=== PATIENT | male | born 1985 | race Caucasian/White ===

== ENCOUNTER 2017-11-05 23:20 | Emergency (ER) | payer OTHER ==
[2017-11-06] MEDS ORDERED: KETOROLAC 60 MG/2 ML VIAL (J1885) IM (02:00)
[2017-11-06] MEDS: IBUPROFEN 600 MG TAB PO (02:14)
== END 2017-11-06 03:04 | disposition home or self-care (01) ==
LOC: M ED 23:20
DX: S39.012A Strain of muscle, fascia and tendon of lower back, initial encounter (principal); S30.0XXA Contusion of lower back and pelvis, initial encounter; W19.XXXA Unspecified fall, initial encounter; Y92.9 Unspecified place or not applicable; Y93.61 Activity, american tackle football; Z88.0 Allergy status to penicillin
CPT/HCPCS: 72110

== ENCOUNTER → 2018-02-06 | Outpatient (REF) | payer OTHER | LOC: M LAB REF 16:59 | DX: J02.9 Acute pharyngitis, unspecified (principal) | CPT/HCPCS: 87077 ==

== ENCOUNTER → 2018-03-10 | Outpatient (REF) | payer OTHER ==
[2018-03-10 10:04] LABS: BASO % 0.3 % (0.0-1.0); EOS # 0.1 10^3/uL (0.0-0.50); EOS % 2.1 % (0.0-3.0); HEMATOCRIT 40.3 % (42.0-52.0); HEMOGLOBIN 14.4 g/dl (13.5-17.5); IMMATURE GRANULOCYTE % 0.9 % (0-3.0); LYMPH # 0.7 10^3/uL (1.5-4.5); LYMPH % 20.2 % (24.0-44.0); MEAN CORPUSCULAR HGB CONC 35.7 g/dl (32.0-36.5); MEAN CORPUSCULAR VOLUME 95.3 fl (80.0-96.0); MONO # 0.4 10^3/uL (0.0-0.8); NEUTROPHILS # 2.1 10^3/uL (1.8-7.7); NEUTROPHILS % 64.5 % (36.0-66.0); PLATELET COUNT, AUTOMATED 157 10^3/uL (150-450); RED BLOOD COUNT 4.23 10^6/uL (4.30-6.10); RED CELL DISTRIBUTION WIDTH 13.1 % (11.5-14.5); WHITE BLOOD COUNT 3.3 10^3/uL (4.0-10.0)
[2018-03-10 10:13] LABS: ESTIMATED AVERAGE GLUCOSE 71 MG/DL (60-110); HEMOGLOBIN A1c 4.1 %
[2018-03-10 10:44] LABS: ALBUMIN 3.7 GM/DL (3.2-5.2); ALBUMIN/GLOBULIN RATIO 1.37 (1.00-1.93); ALKALINE PHOSPHATASE 40 U/L (45-117); ALT/SGPT 27 U/L (12-78); ANION GAP 7 MEQ/L (8-16); AST/SGOT 17 U/L (7-37); BILIRUBIN,TOTAL 0.6 MG/DL (0.2-1.0); BLOOD UREA NITROGEN 15 MG/DL (7-18); CALCIUM LEVEL 8.3 MG/DL (8.5-10.1); CARBON DIOXIDE LEVEL 26 MEQ/L (21-32); CHLORIDE LEVEL 110 MEQ/L (98-107); CHOLESTEROL LEVEL 119 MG/DL (<200); CREATININE FOR GFR 1.04 MG/DL (0.70-1.30); GLOMERULAR FILTRATION RATE > 60.0 (>60); GLUCOSE, FASTING 92 MG/DL (70-100); HDL CHOLESTEROL 35 MG/DL (>40); LDL CHOLESTEROL 58.8 MG/DL (<100); NON-HDL-C 84 MG/DL; POTASSIUM SERUM 3.9 MEQ/L (3.5-5.1); SODIUM LEVEL 143 MEQ/L (136-145); TOTAL PROTEIN 6.4 GM/DL (6.4-8.2); TRIGLYCERIDES LEVEL 126 MG/DL (<150)
== END ==
LOC: M SFHCPLAZ 08:07
DX: R53.83 Other fatigue (principal); E66.9 Obesity, unspecified

== ENCOUNTER 2018-03-11 07:35 | Outpatient (CLI) | payer OTHER | END 2018-03-16 | LOC: M SLEEP 07:35 | DX: R06.83 Snoring (principal) | CPT/HCPCS: G0399 ==

== ENCOUNTER → 2018-04-20 | Outpatient (CLI) | payer OTHER ==
[2018-04-20 20:24] LABS: TOTAL 25(OH) VITAMIN D 17.1 NG/ML (30.0-100.0); VITAMIN B12 LEVEL 339 PG/ML (247-911)
== END ==
LOC: M WUC 18:09
DX: R53.83 Other fatigue (principal); E55.9 Vitamin D deficiency, unspecified

== ENCOUNTER 2018-12-15 17:41 | Emergency (ER) | payer OTHER, SELFPAY ==
[~2018-12-15] VITALS: Ht 177.8 cm; Wt 113.6 kg
[~2018-12-15 17:41] MED LIST: KETO10TAB PO
[2018-12-15 19:10] LABS: INFLUENZA A AMPLIFICATION POSITIVE (NEGATIVE); INFLUENZA B AMPLIFICATION NEGATIVE (NEGATIVE)
[2018-12-15] MEDS ORDERED: ONDA4TAB6 PO ×2 (20:24→20:30)
[2018-12-15] MEDS ORDERED: OSEL75CA PO ×2 (20:24→20:30)
[2018-12-15 20:30] VITALS: BP 136/83
[2018-12-15] MEDS ORDERED: ONDANSETRON 4 MG ORAL DISINTEGRATING TAB (Q0162 PER 1MG) PO ONE (20:30)
== END 2018-12-15 20:34 | disposition home or self-care (01) ==
LOC: M ED 17:41
DX: J09.X2 Influenza due to identified novel influenza A virus with other respiratory manifestations (principal); Z87.891 Personal history of nicotine dependence; F12.10 Cannabis abuse, uncomplicated; Z88.0 Allergy status to penicillin
CPT/HCPCS: 87502; 99283; Q0162

== ENCOUNTER 2019-03-09 19:23 | Emergency (ER) | payer OTHER, SELFPAY ==
[~2019-03-09] VITALS: Ht 177.8 cm; Wt 109.1 kg
[~2019-03-09 19:23] MED LIST changes: +ONDA4TAB6 PO; +OSEL75CA PO
[2019-03-09] MEDS ORDERED: KETOROLAC 30 MG/ML VIAL (J1885) IV ONE (22:15)
[2019-03-09] MEDS ORDERED: NS 1,000 ML IV ONE (22:15)
[2019-03-09] MEDS ORDERED: diphenhydrAMINE INJ 50MG/ML VIAL (J1200) IV ONE (22:15)
[2019-03-09] MEDS ORDERED: ONDANSETRON 4MG/2ML VIAL (J2405) IV ONE (22:15)
[2019-03-09 22:32] LABS: HEMATOCRIT 46.8 % (42.0-52.0); HEMOGLOBIN 16.2 g/dl (13.5-17.5); MEAN CORPUSCULAR HEMOGLOBIN 33.8 pg (27.0-33.0); MEAN CORPUSCULAR HGB CONC 34.6 g/dl (32.0-36.5); MEAN CORPUSCULAR VOLUME 97.7 fl (80.0-96.0); PLATELET COUNT, AUTOMATED 170 10^3/uL (150-450); RED BLOOD COUNT 4.79 10^6/uL (4.30-6.10); WHITE BLOOD COUNT 4.6 10^3/uL (4.0-10.0)
[2019-03-09 22:58] LABS: BLOOD UREA NITROGEN 12 MG/DL (7-18); CALCIUM LEVEL 8.5 MG/DL (8.5-10.1); CARBON DIOXIDE LEVEL 28 MEQ/L (21-32); CHLORIDE LEVEL 107 MEQ/L (98-107); CREATININE FOR GFR 1.05 MG/DL (0.70-1.30); GLOMERULAR FILTRATION RATE > 60.0 (>60); GLUCOSE, FASTING 78 MG/DL (70-100); MAGNESIUM LEVEL 2.3 MG/DL (1.8-2.4); POTASSIUM SERUM 3.9 MEQ/L (3.5-5.1); SODIUM LEVEL 142 MEQ/L (136-145)
--- NOTE | 2019-03-09 23:19 | REPVR ---
EXAM: CT Head Without Contrast EXAM DATE/TIME: 03/09/2019 10:47 PM CLINICAL HISTORY: 33 years old, male; Pain; Headache TECHNIQUE: Imaging protocol: Axial computed tomography images of the head without contrast. Radiation optimization: All CT scans at this facility use at least one of these dose optimization techniques: automated exposure control; mA and/or kV adjustment per patient size (includes targeted exams where dose is matched to clinical indication); or iterative reconstruction. COMPARISON: No relevant prior studies available. FINDINGS: Brain: Unremarkable. No hemorrhage. No significant white matter disease. No edema. Ventricles: Unremarkable. No ventriculomegaly. Bones/joints: Unremarkable. No acute fracture. Sinuses: Visualized sinuses are unremarkable. No fluid levels. Mastoid air cells: Visualized mastoid air cells are well aerated. No mastoid effusion. Soft tissues: Unremarkable. IMPRESSION: No acute abnormality. Electronically signed by: Steve Maxwell On 03/09/2019 23:18:57 PM
[2019-03-10] MEDS ORDERED: ZOFR4TAB16 PO (00:02)
[2019-03-10] MEDS ORDERED: KETO10TAB PO (00:02)
[2019-03-10 00:18] VITALS: BP 120/70
== END 2019-03-10 00:17 | disposition home or self-care (01) ==
LOC: M ED 19:23
DX: R51 Headache (principal); Z88.0 Allergy status to penicillin
CPT/HCPCS: 70450; 80048; 83735; 85027; 96361; 96374; 96375; 99284; J1200; J1885; J2405

== ENCOUNTER 2020-03-19 20:56 | Emergency (ER) | payer SELFPAY ==
[~2020-03-19] VITALS: Ht 180.3 cm; Wt 104.5 kg
[~2020-03-19 20:56] MED LIST changes: +ZOFR4TAB16 PO
[2020-03-20] MEDS ORDERED: LIDOCAINE 1% MDV 20ML VIAL IM ONE
[2020-03-20 00:42] VITALS: BP 132/74
== END 2020-03-20 00:45 | disposition home or self-care (01) ==
LOC: M ED 20:56
DX: S61.214A Laceration without foreign body of right ring finger without damage to nail, initial encounter (principal); W25.XXXA Contact with sharp glass, initial encounter; F17.200 Nicotine dependence, unspecified, uncomplicated; Z88.0 Allergy status to penicillin; Y92.9 Unspecified place or not applicable; Y93.9 Activity, unspecified; Y99.9 Unspecified external cause status